=== PATIENT | male | born 2000 | race Caucasian/White ===

== ENCOUNTER → 2020-04-02 | Outpatient (CLI) | payer MEDICAID ==
[2020-04-02 12:32] LABS: Basophils # (A) 0.1 k/uL (0-0.2); Basophils % (A) 1 %; Eosinophils # (A) 0.1 k/uL (0-0.7); Eosinophils % (A) 1 %; HCT 47.1 % (39.0-53.0); HGB 15.2 gm/dL (13.0-17.5); Lymphocytes # (A) 2.7 k/uL (1.0-4.8); Lymphocytes % (A) 27 %; MCH 29.2 pg (25.0-35.0); MCHC 32.2 g/dL (31.0-37.0); MCV 90.6 fL (80.0-100.0); Monocytes # (A) 0.6 k/uL (0-1.0); Monocytes % (A) 6 %; Neutrophils # (A) 6.5 k/uL (1.3-7.7); Neutrophils % (A) 64 %; Platelet Count 328 k/uL (150-450); RDW 12.9 % (11.5-15.5); WBC 10.2 k/uL (4.0-11.0)
[2020-04-02 20:29] LABS: African American GFR (CKD) 157.5 (60.0-200.0); Albumin 4.5 g/dL (3.80-4.90); Albumin/Globulin Ratio 2.25 (1.60-3.17); Anion Gap 6.1 mmol/L (4.00-12.00); BUN/Creat Ratio 12.86 Ratio (12.00-20.00); Calcium 9.2 mg/dL (8.7-10.3); Carbon Dioxide 25.9 mmol/L (21.6-31.8); Magnesium 2.2 mg/dL (1.5-2.4); Non-African American GFR(CKD) 135.9 (60.0-200.0); Potassium 4.4 mmol/L (3.5-5.5); Total Bilirubin 0.3 mg/dL (0.3-1.2); Total Protein 6.5 g/dL (6.2-8.2)
== END | disposition home or self-care (01) ==
LOC: LABWHC1 11:47
PROVIDERS: ATTEND Internal Medicine
DX: Z00.01 Encounter for general adult medical examination with abnormal findings (principal); F41.1 Generalized anxiety disorder; K21.9 Gastro-esophageal reflux disease without esophagitis; R53.83 Other fatigue
CPT/HCPCS: 36415; 80053; 82306; 82607; 83735; 84443; 85025

== ENCOUNTER 2022-03-13 11:04 | Emergency (ER) | payer MEDICAID, OTHER ==
[2022-03-13] MEDS ORDERED: SODIUM CHLORIDE 0.9% 2,000 ML IV STA (11:10)
--- NOTE | 2022-03-13 11:11 | ED ---
General Adult HPI - General Stated complaint: Flank Pain Time Seen by Provider: 03/13/22 11:10 Source: patient, family, RN notes reviewed Mode of arrival: ambulatory Limitations: no limitations - History of Present Illness Initial comments: This is a 21-year-old male presents emergency Department chief complaint of left flank pain. Patient states the pain started last 24 hours he did have noted hematuria prior to this. Patient has no history kidney stones but states pain is excruciating, nothing makes it feel better at this time. Patient's very nausea, vomiting. Patient denies any fevers or chills no dysuria no diarrhea constipation. - Related Data Previous Rx's Medication Instructions Recorded HYDROcodone/APAP 10-325MG [[place] 1 tab PO Q6HR PRN 3 Days #12 tab 03/13/22 10-325] Ketorolac [Toradol] 10 mg PO Q8HR #15 tab 03/13/22 Ondansetron Odt [Zofran Odt] 4 mg PO Q8HR PRN #10 tab 03/13/22 Tamsulosin [Flomax] 0.4 mg PO DAILY #7 cap 03/13/22 Allergies Allergy/AdvReac Type Severity Reaction Status Date / Time No Known Allergies Allergy Verified 03/13/22 12:14 Review of Systems ROS Statement: Those systems with pertinent positive or pertinent negative responses have been documented in the HPI. ROS Other: All systems not noted in ROS Statement are negative. Past Medical History Past Medical History: No Reported History History of Any Multi-Drug Resistant Organisms: None Reported Past Surgical History: Cholecystectomy Past Psychological History: No Psychological Hx Reported Past Alcohol Use History: None Reported Past Drug Use History: None Reported General Exam General appearance: alert, in no apparent distress Head exam: Present: atraumatic, normocephalic, normal inspection Eye exam: Present: normal appearance, PERRL, EOMI. Absent: scleral icterus, conjunctival injection, periorbital swelling Respiratory exam: Present: normal lung sounds bilaterally. Absent: respiratory distress, wheezes, rales, rhonchi, stridor Cardiovascular Exam: Present: regular rate, normal rhythm, normal heart sounds. Absent: systolic murmur, diastolic murmur, rubs, gallop, clicks GI/Abdominal exam: Present: soft, normal bowel sounds. Absent: distended, tenderness (No increasing pain with palpation), guarding, rebound, rigid Back exam: Present: CVA tenderness (L). Absent: CVA tenderness (R) Neurological exam: Present: alert Skin exam: Present: warm, dry, intact, normal color. Absent: rash Course Vital Signs 03/13/22 03/13/22 11:23 12:38 Temperature 98.3 F Pulse Rate 80 80 Respiratory 20 18 Rate Blood Pressure 151/98 159/86 O2 Sat by Pulse 95 100 Oximetry Medical Decision Making - Medical Decision Making 4-year-old presented for left flank pain patient has 9 mm UPJ stone. Patient was given pain meds fluids feels improved at this time he is advised that he needs a follow-up with urology for - Lab Data Result diagrams: 03/13/22 12:06 03/13/22 12:06 Lab Results 03/13/22 03/13/22 03/13/22 Range/Units 12:06 12:06 12:47 WBC 15.2 H (3.8-10.6) k/uL RBC 5.32 (4.30-5.90) m/uL Hgb 15.6 (13.0-17.5) gm/dL Hct 47.2 (39.0-53.0) % MCV 88.8 (80.0-100.0) fL MCH 29.3 (25.0-35.0) pg MCHC 33.0 (31.0-37.0) g/dL RDW 12.7 (11.5-15.5) % Plt Count 441 (150-450) k/uL MPV 7.4 Neutrophils % 80 % Lymphocytes % 12 % Monocytes % 6 % Eosinophils % 1 % Basophils % 1 % Neutrophils # 12.1 H (1.3-7.7) k/uL Lymphocytes # 1.8 (1.0-4.8) k/uL Monocytes # 0.9 (0-1.0) k/uL Eosinophils # 0.1 (0-0.7) k/uL Basophils # 0.1 (0-0.2) k/uL Sodium 141 (137-145) mmol/L Potassium 4.1 (3.5-5.1) mmol/L Chloride 105 (98-107) mmol/L Carbon Dioxide 24 (22-30) mmol/L Anion Gap 12 mmol/L BUN 11 (9-20) mg/dL Creatinine 0.85 (0.66-1.25) mg/dL Est GFR (CKD-EPI)AfAm >90 (>60 ml/min/1.73 sqM) Est GFR (CKD-EPI)NonAf >90 (>60 ml/min/1.73 sqM) Glucose 110 H (74-99) mg/dL Calcium 9.4 (8.4-10.2) mg/dL Total Bilirubin 0.6 (0.2-1.3) mg/dL AST 29 (17-59) U/L ALT 26 (4-49) U/L Alkaline Phosphatase 101 (38-126) U/L Total Protein 7.6 (6.3-8.2) g/dL Albumin 4.8 (3.5-5.0) g/dL Amylase 152 H (30-110) U/L Lipase 110 (23-300) U/L Urine Color Light Yellow Urine Appearance Cloudy (Clear) Urine pH 7.5 (5.0-8.0) Ur Specific [place] 1.012 (1.001-1.035) Urine Protein Trace H (Negative) Urine Glucose (UA) Negative (Negative) Urine Ketones Negative (Negative) Urine Blood Trace H (Negative) Urine Nitrite Negative (Negative) Urine Bilirubin Negative (Negative) Urine Urobilinogen <2.0 (<2.0) mg/dL Ur Leukocyte Esterase Negative (Negative) Urine RBC 16 H (0-5) /hpf Urine WBC 3 (0-5) /hpf Amorphous Sediment Moderate H (None) /hpf Urine Mucus Occasional H (None) /hpf Disposition Clinical Impression: Kidney stone on left side Disposition: HOME SELF-CARE Condition: Stable Instructions (If sedation given, give patient instructions): Kidney Stones (ED) Additional Instructions: Please return to the Emergency Department if symptoms worsen or any other concerns. Is patient prescribed a controlled substance at d/c from ED?: Yes When asked, does pt state using other controlled substances?: No If prescribed controlled substance>3 days was MAPS reviewed?: Prescribed <3 Days If opioid is for acute pain is fill amount 7 days or less?: Yes If Rx opioid, was Start Talking consent form obtained?: Yes Referrals: Maria Luisa Musa III, MD [Primary Care Provider] - 1-2 days Johann Reese MD [STAFF PHYSICIAN] - 1-2 days Time of Disposition: 13:35
[2022-03-13 11:26] VITALS: PULSE 80; TEMP 98.3
[2022-03-13] MEDS ORDERED: HYDROmorphone 0.5 MG/0.5 ML SYRINGE IVP STA ×2 (11:48→12:17)
[2022-03-13] MEDS ORDERED: KETOROLAC 15 MG/ML 1 ML VIAL IVP STA ×2 (11:48→12:17)
[2022-03-13] MEDS ORDERED: ONDANSETRON 4 MG/2 ML VIAL IVP STA (11:48)
--- NOTE | 2022-03-13 12:16 | CT ---
EXAMINATION TYPE: CT abdomen pelvis wo con DATE OF EXAM: 03/13/2022 COMPARISON: X-ray dated 02/21/2014 HISTORY: left flank pain CT DLP: 1634.4 mGycm Automated exposure control for dose reduction was used. TECHNIQUE: Helical acquisition of images was performed from the lung bases through the pelvis. FINDINGS: LUNG BASES: No significant abnormality is appreciated. LIVER/GB: Previous cholecystectomy. Grossly unremarkable liver. PANCREAS: No significant abnormality is seen. SPLEEN: No significant abnormality is seen. ADRENALS: No significant abnormality is seen. KIDNEYS: 8 x 9 mm obstructing stone is seen at the left pelviureteric junction, causing dilatation of the left collecting system and left perinephric fat stranding. 2 mm nonobstructing stone is seen at the lower pole of the left kidney. Suspected left renal cyst measuring up to 2.6 cm, suboptimally ass essed by the CT scan with questionable subtle hypodensity within. Further elective ultrasound assessm ent can be considered. Unremarkable right kidney. No right-sided hydroureter or hydronephrosis. FREE AIR: No free air is visualized RETROPERITONEAL ADENOPATHY: None visualized REPRODUCTIVE ORGANS: No significant abnormality is seen URINARY BLADDER: No significant abnormality is seen. PELVIC ADENOPATHY: None visualized. OSSEOUS STRUCTURES: Mild degenerative changes at L5-S1 level. BOWEL: No significant abnormality is seen. IMPRESSION: 9 mm left pelviureteric junction obstructing stone as described above, for urology consultation. Othe r findings as described above.
[2022-03-13 12:18] LABS: Basophils # (A) 0.1 k/uL (0-0.2); Basophils % (A) 1 %; Eosinophils # (A) 0.1 k/uL (0-0.7); Eosinophils % (A) 1 %; HCT 47.2 % (39.0-53.0); HGB 15.6 gm/dL (13.0-17.5); Lymphocytes # (A) 1.8 k/uL (1.0-4.8); Lymphocytes % (A) 12 %; MCH 29.3 pg (25.0-35.0); MCV 88.8 fL (80.0-100.0); Mean Platelet Volume 7.4; Monocytes # (A) 0.9 k/uL (0-1.0); Monocytes % (A) 6 %; Neutrophils # (A) 12.1 k/uL (1.3-7.7); Neutrophils % (A) 80 %; Platelet Count 441 k/uL (150-450); RBC 5.32 m/uL (4.30-5.90); RDW 12.7 % (11.5-15.5); WBC 15.2 k/uL (3.8-10.6)
[2022-03-13 12:39] VITALS: BP 159/86; RESP 18
[2022-03-13 12:40] LABS: ALT 26 U/L (4-49); AST 29 U/L (17-59); African American GFR (CKD) >90 (>60 ml/min/1.73 sqM); Albumin 4.8 g/dL (3.5-5.0); Alkaline Phosphatase 101 U/L (38-126); Amylase 152 U/L (30-110); Anion Gap 12 mmol/L; Blood Urea Nitrogen 11 mg/dL (9-20); Calcium 9.4 mg/dL (8.4-10.2); Carbon Dioxide 24 mmol/L (22-30); Chloride 105 mmol/L (98-107); Glucose 110 mg/dL (74-99); Lipase 110 U/L (23-300); Non-African American GFR(CKD) >90 (>60 ml/min/1.73 sqM); Potassium 4.1 mmol/L (3.5-5.1); Sodium 141 mmol/L (137-145); Total Bilirubin 0.6 mg/dL (0.2-1.3); Total Protein 7.6 g/dL (6.3-8.2)
[2022-03-13 13:00] LABS: Amorphous Sediment,Urine Moderate /hpf; Appearance,Urine Cloudy (Clear); Bilirubin,Urine Negative (Negative); Blood,Urine Trace (Negative); Color,Urine Light Yellow; Glucose,Urine (UA) Negative (Negative); Ketones,Urine Negative (Negative); Leukocyte Esterase,Urine Negative (Negative); Mucus,Urine Occasional /hpf; Nitrite,Urine Negative (Negative); PH, Urine 7.5 (5.0-8.0); Protein,Urine Trace (Negative); RBC,Urine 16 /hpf (0-5); Specific Gravity,Urine 1.012 (1.001-1.035); Urobilinogen,Urine <2.0 mg/dL (<2.0); WBC,Urine 3 /hpf (0-5)
[2022-03-13] MEDS ORDERED: METOCLOPRAMIDE 5 MG/ML 2 ML VIAL IVP STA (13:51)
== END 2022-03-13 14:06 | disposition home or self-care (01) ==
LOC: EC 11:04
DX: N20.0 Calculus of kidney (principal)
CPT/HCPCS: 36415; 80053; 82150; 83690; 85025; 81001; 74176; 99284; 96374; 96375 ×3; 96376 ×2; 96361 ×2; J2765; J2405; J1885; J1170

== ENCOUNTER 2022-03-19 10:19 | Day surgery (SDC) | payer OTHER ==
[2022-03-18 08:56] VITALS: BMI 38.6
--- NOTE | 2022-03-18 20:38 | P.GSHP ---
History of Present Illness H&P Date: 03/18/22 21 yo male, several days began with severe left flank pain. He ended up in the er where they identified a 9 mm proximal ureteral stone. He came to see me. This is the patients first stone. He has had no fever. I reviewed with the patient treatment options including spontaneous passage, eswl, ureteroscopy and pcnl. He comes for a left ureteroscopy and left laser lithotripsy. He may need a stent . The risks and complications have been discussed. Past Medical History Past Medical History: No Reported History Additional Past Medical History / Comment(s): KIDNEY STONES History of Any Multi-Drug Resistant Organisms: None Reported Past Surgical History: Cholecystectomy Past Anesthesia/Blood Transfusion Reactions: No Reported Reaction Smoking Status: Current every day smoker, Vaper - Past Family History Mother Family Medical History: No Reported History Medications and Allergies Home Medications Medication Instructions Recorded Confirmed Type HYDROcodone/APAP 10-325MG [[place] 1 tab PO Q6HR PRN 3 Days #12 tab 03/13/22 0 03/18/22 Rx 10-325] Ketorolac [Toradol] 10 mg PO Q8HR #15 tab 03/13/22 03/18/22 Rx Ondansetron Odt [Zofran Odt] 4 mg PO Q8HR PRN #10 tab 03/13/22 03/18/22 Rx Tamsulosin [Flomax] 0.4 mg PO DAILY #7 cap 03/13/22 03/18/22 Rx Allergies Allergy/AdvReac Type Severity Reaction Status Date / Time No Known Allergies Allergy Verified 03/18/22 08:41 Surgical - Exam - General mild distress. well developed, well nourished - Eyes PERRL - ENT no hearing loss - Neck trachea midline - Respiratory normal expansion, normal respiratory effort - Cardiovascular Rhythm: regular - Abdomen tender left flank Abdomen: soft - Genitourinary normal penis with no external lesions, testicles present - Integumentary no growths - Neurologic normal coordination, normal sensation - Musculoskeletal normal gait, normal posture - Psychiatric oriented to time, oriented to person, oriented to place, speech is normal, memory intact Results - Imaging CT scan - abdomen: report reviewed, image reviewed CT scan - pelvis: report reviewed, image reviewed Assessment and Plan Assessment: Impression: left ureteral stone, large. Plan: cysto with left ureteroscopy, laser lithotripsy and possible stent.
[~2022-03-19 10:19] MED LIST: DEXAMETHASONE SOD PHOSPHATE 4 MG/ML 1 ML VIAL IV ONE; HYDROmorphone 0.5 MG/0.5 ML SYRINGE IVP PRN; LACTATED RINGERS 1,000 ML IV SCH; MIDAZOLAM 2 MG/2 ML VIAL IV PRN; ONDANSETRON 4 MG/2 ML VIAL IVP ONE; SCOPOLAMINE 1 MG/72 HR PATCH TRANSDERM ONE; ceFAZolin 3 GM in SODIUM CHLORIDE 0.9% 100 ML IVPB PRN
--- NOTE | 2022-03-19 11:11 | XR ---
EXAMINATION TYPE: XR KUB DATE OF EXAM: 03/19/2022 10:31 AM CLINICAL HISTORY: Left-sided kidney stones. TECHNIQUE: Two supine KUB images of the abdomen are obtained. COMPARISON: CT abdomen and pelvis March 13, 2022 FINDINGS: Stable near 9 mm calculus proximal left ureter at L2-L3 disc space level. Overall nonobstructive bowel gas pattern. Cholecystectomy clips redemonstrated. Visualized osseous st ructures are intact. IMPRESSION: As above.
[2022-03-19] MEDS ORDERED: PROPOFOL 10 MG/ML 20 ML VIAL IV ONE (12:00)
[2022-03-19] MEDS ORDERED: LIDOCAINE 2% INJ 20 MG/ML (2 ML VIAL) ONE (12:00)
[2022-03-19] MEDS ORDERED: fentaNYL (PF) 50 MCG/ML 2 ML AMP ONE (12:00)
[2022-03-19] MEDS ORDERED: SUCCINYLCHOLINE CHLORIDE 100 MG/5 ML SYR IV ONE (12:00)
[2022-03-19] MEDS ORDERED: MIDAZOLAM 2 MG/2 ML VIAL ONE (12:00)
--- NOTE | 2022-03-19 13:01 | P.OP ---
Date of Procedure: 03/19/22 Preoperative Diagnosis: Left ureteral calculus Postoperative Diagnosis: Same Procedure(s) Performed: Cystoscopy, left ureteroscopy with laser lithotripsy, 6 x 26 stent Anesthesia: LEOBARDOA Surgeon: Prasanna Sethi Estimated Blood Loss (ml): 0 Pathology: none sent Condition: stable Disposition: PACU Indications for Procedure: Patient is 21. He has an 8 mm UPJ stone with obstruction. He wishes it treated. He comes for ureteroscopy laser lithotripsy Description of Procedure: Patient brought to the operative suite. Given general anesthesia. Placed lithotomy position with sterile prep and drape. Cystoscopy 21-[place] sheath and Foroblique lens identifies a normal urethra. The prostate isn't obstructing. Ureteral orifices are normal. The bladder mucosa is unremarkable The left ureteral orifice is intubated with an 035 wire that passes eventually by the stone into the renal pelvis. Over the wires passed 10-63-Hflpjj reentry sheath. The sheath is removed. The flexible ureteroscope was passed up the stone. With the 200 probe the stone is dusted into tiny fragments and flushed out of the ureter. Some the fragments pass up and in the renal pelvis which I go up there and fragment these. Then of the procedure there is no significant fragments to basket for removal. Because of the swelling at the UPJ double-J catheter placed An 035 wires passed through the ureteroscope into the left kidney. I removed the ureteroscope and the working sheath. I backloaded the wire onto the cystoscope. The cystoscope was introduced in the bladder. Over the wires passed a 6 x 26 double-J catheter that coils in the left renal pelvis and the bladder the bladder strain the patient's awakened and returned recovery in good condition. He tolerated procedure well. He'll be discharged home upon recovery.
[2022-03-19 13:14] VITALS: TEMP 98.1
--- NOTE | 2022-03-19 13:49 | FL ---
Fluoroscopy HISTORY: Left kidney stone 41 seconds fluoroscopy time supplied to the referring clinician. 1 intraoperative C-arm images docum ent the procedure. See dictated report from urology.
[2022-03-19 14:00] VITALS: RESP 20
[2022-03-19 14:24] VITALS: BP 144/77; PULSE 88
== END 2022-03-19 14:36 | disposition home or self-care (01) ==
LOC: OR 10:19
PROVIDERS: ATTEND Urology
DX: N20.1 Calculus of ureter (principal); Z87.442 Personal history of urinary calculi; Z90.49 Acquired absence of other specified parts of digestive tract; F17.200 Nicotine dependence, unspecified, uncomplicated; Z79.899 Other long term (current) drug therapy; Z79.1 Long term (current) use of non-steroidal anti-inflammatories (NSAID)
CPT/HCPCS: 74018; 52356; C2625; C1769; J2250; J1100; J0690; J2405; J3010; J0330; J2704; J2001

== ENCOUNTER 2022-08-24 19:33 | Emergency (ER) | payer OTHER ==
[2022-08-24 19:49] VITALS: RESP 15; TEMP 98.8
--- NOTE | 2022-08-24 20:03 | ED ---
Lower Extremity Injury HPI - General Source: EMS, RN notes reviewed Mode of arrival: EMS Limitations: no limitations - History of Present Illness MD Complaint: leg injury, ankle injury <Silas Olmos - Last Filed: 08/24/22 21:35> <Joao Tate - Last Filed: 08/26/22 07:12> - General Chief Complaint: Extremity Injury, Lower Stated Complaint: left ankle injury, [facility] Time Seen by Provider: 08/24/22 19:53 - History of Present Illness Initial Comments: This is a pleasant 22-year-old male who was making a delivery. Patient turned around and ended up slipping. Patient twisted his left ankle and left leg in a strange manner. Patient went to get up and felt some movement and pain. Patient states he could not ambulate. Patient had up calling ambulance and arrives via EMS. Complaining of pain to the left ankle and left lower leg which is exacerbated by movement and attempted ambulation. Denies any other injuries. He denies distal paresthesias. No headache, no fever or chills, no changes in vision or hearing, no sore throat or difficulty with speech, no neck pain, no chest pain or shortness of breath, no abdominal pain, no nausea or vomiting, no changes in urination or bowel movements, no numbness or tingling,, no skin rashes or lesions. Past medical, surgical, social, and family history reviewed. Patient received pain medication and the EMS ambulance which improved his pain. (Silas Olmos) - Related Data Home Medications Medication Instructions Recorded Confirmed Escitalopram [Lexapro] 10 mg PO DAILY 03/19/22 03/19/22 RABEprazole SODIUM 20 mg PO DAILY 03/19/22 03/19/22 Previous Rx's Medication Instructions Recorded HYDROcodone/APAP 10-325MG [[place] 1 tab PO Q6HR PRN 3 Days #12 tab 03/13/22 10-325] Ketorolac [Toradol] 10 mg PO Q8HR #15 tab 03/13/22 Ondansetron Odt [Zofran Odt] 4 mg PO Q8HR PRN #10 tab 03/13/22 Tamsulosin [Flomax] 0.4 mg PO DAILY #7 cap 03/13/22 HYDROcodone/APAP 5-325MG [[place] 1 tab PO Q6HR PRN 3 Days #12 tab 08/24/22 [id number]] Allergies Allergy/AdvReac Type Severity Reaction Status Date / Time No Known Allergies Allergy Verified 08/25/22 13:59 Review of Systems ROS Other: All systems not noted in ROS Statement are negative. <Silas Olmos - Last Filed: 08/24/22 21:35> ROS Other: All systems not noted in ROS Statement are negative. <BebetoJoao - Last Filed: 08/26/22 07:12> ROS Statement: Those systems with pertinent positive or pertinent negative responses have been documented in the HPI. Past Medical History Past Medical History: No Reported History Additional Past Medical History / Comment(s): KIDNEY STONES History of Any Multi-Drug Resistant Organisms: None Reported Past Surgical History: Cholecystectomy Past Anesthesia/Blood Transfusion Reactions: No Reported Reaction Past Psychological History: No Psychological Hx Reported Smoking Status: Current every day smoker, Vaper - Past Family History Mother Family Medical History: No Reported History <Silas Olmos - Last Filed: 08/24/22 21:35> General Exam Limitations: no limitations General appearance: alert, in no apparent distress Head exam: Present: atraumatic, normocephalic, normal inspection Eye exam: Present: normal appearance, PERRL, EOMI. Absent: scleral icterus, conjunctival injection, periorbital swelling ENT exam: Present: normal exam, mucous membranes moist Neck exam: Present: normal inspection. Absent: tenderness, meningismus, lymphadenopathy Respiratory exam: Present: normal lung sounds bilaterally. Absent: respiratory distress, wheezes, rales, rhonchi, stridor Cardiovascular Exam: Present: regular rate, normal rhythm, normal heart sounds. Absent: systolic murmur, diastolic murmur, rubs, gallop, clicks GI/Abdominal exam: Present: soft, normal bowel sounds. Absent: distended, tenderness, guarding, rebound, rigid Extremities exam: Present: tenderness, normal capillary refill. Absent: calf tenderness Left Hip exam: Present: normal inspection, full ROM. Absent: tenderness Upper Leg exam: Present: normal inspection. Absent: tenderness, swelling Knee exam: Present: normal inspection, full ROM. Absent: tenderness, swelling, abrasion Lower Leg exam: Present: tenderness (Patient has tenderness near the proximal fibula. Also tenderness near the distal fibula.). Absent: full ROM, swelling, abrasion, laceration, ecchymosis, deformity, crepitus, dislocation Ankle exam: Present: tenderness (Lateral malleolus and distal fibula.), swelling. Absent: full ROM (Limited by pain), abrasion, laceration, ecchymosis, deformity, crepitus, dislocation, erythema, anterior draw sign Foot/Toe exam: Present: normal inspection, full ROM. Absent: tenderness, swelling, abrasion, laceration, ecchymosis, deformity, crepitus, dislocation, erythema, amputation, calcaneal tenderness, tenderness at base of 5th metatarsal Neurovascular tendon exam: Present: no vascular compromise. Absent: pulse deficit, abnormal cap refill, motor deficit, sensory deficit, pallor, abnormal 2-point discrimination Gait: observed and normal Back exam: Present: normal inspection Neurological exam: Present: alert, oriented X3, CN II-XII intact Psychiatric exam: Present: normal affect, normal mood Skin exam: Present: warm, dry, intact, normal color. Absent: rash <Silas Olmos - Last Filed: 08/24/22 21:35> Course <Joao Tate - Last Filed: 08/26/22 07:12> Vital Signs 08/24/22 08/24/22 19:45 21:43 Temperature 98.8 F Pulse Rate 77 75 Respiratory 15 15 Rate Blood Pressure 166/74 133/85 O2 Sat by Pulse 100 99 Oximetry - Reevaluation(s) Reevaluation #1: 08/26/22 07:08 Physician note: I reviewed all documentation and Results. Perform the MDM in its entirity which constitutes more than 50% percent of the visit. I did also discuss the findings with the patient and family. (Joao Tate) Procedures - Orthopedic Splinting/Casting Injury #1 Side: left Lower Extremity Injury Location: long leg Lower Extremity Immobilizer: posterior splint (OCL splint) Other Orthopedic Equipment: crutches <Silas Olmos - Last Filed: 08/24/22 21:35> - Orthopedic Splinting/Casting Injury #1 Additional Comments: Distal neurovascular status intact both pre-and post-application (Silas Olmos) Medical Decision Making <Silas Olmos - Last Filed: 08/24/22 21:35> - Medical Decision Making Patient presents with isolated orthopedic injury to the left ankle and left lower leg. Differential diagnosis, soft tissue injury, fracture, dislocation Distal neurovascular status is intact. No other injuries X-rays of the left tibia/fibula and left ankle independently interpreted by me reveal a medial malleolus fracture as well as a proximal fibular fracture. Reviewed radiology interpretation. All findings discussed with the patient. Treatment plan discussed. Patient will need to be nonweightbearing. Splint care discussed. Discussed signs and symptoms of compartment syndrome. Discussed conservative measures otherwise. Short course of [place]. Follow-up with orthopedics. On-call orthopedic physician's Dr. Campos. Patient was told to return to the ER for any signs or symptoms worsen. Told to return immediately if any other problems arise. All questions answered. Treatment plan discussed. Patient in agreement Every effort has been made to ensure accuracy of this dictation. However, due to the limitations of electronic medical records and dictation devices, errors in charting still occur. The case was discussed in detail with ED attending physician. Presentation, findings, treatment plan discussed in detail. Patient seen and assessed by the ED attending physician as well. Investigation Manager Dr. Tate (Silas Olmos) Disposition Is patient prescribed a controlled substance at d/c from ED?: No Time of Disposition: 21:35 <Silas Olmos - Last Filed: 08/24/22 21:35> <Joao Tate - Last Filed: 08/26/22 07:12> Clinical Impression: Fracture of medial malleolus, left, closed, Closed fracture of proximal end of left fibula Disposition: HOME SELF-CARE Condition: Stable Instructions (If sedation given, give patient instructions): Leg Fracture (ED), Crutch Instructions (ED), Arambula Splints (ED) Additional Instructions: Call tomorrow morning at 8 AM to schedule appointment with the orthopedic physician. Follow-up with your regular physician as directed. Return to the ER immediately if any symptoms worsen, new symptoms arise, or any other problems develop. Prescriptions: HYDROcodone/APAP 5-325MG [[place] 5-325] 1 tab PO Q6HR PRN 3 Days #12 tab PRN Reason: Pain Referrals: Maverick Campos MD [STAFF PHYSICIAN] - 08/26/22
--- NOTE | 2022-08-24 20:28 | XR ---
EXAMINATION TYPE: XR ankle complete LT DATE OF EXAM: 08/24/2022 8:15 PM INDICATION: Patient age:Male; 22 years old; Reason for study: Left ankle and left lower leg injury/pain; [facility]. COMPARISON: Left tibia/fibular radiographs 08/24/2020 TECHNIQUE: The left ankle is imaged in frontal, lateral and oblique projections. FINDINGS: Minimally displaced fracture of the medial malleolus with slight apex lateral angulation. There is wi dening of the medial joint space. Cortical step-off deformity involving the distal posterior tibia, b est appreciated on crosstable lateral views, concerning for additional fracture with intra-articular extension. Moderate soft tissue swelling of the ankle. Talar dome is normal in appearance. IMPRESSION: 1.Displaced medial malleolar fracture. 2. Cortical deformity of the distal posterior tibia concerning for secondary fracture.
--- NOTE | 2022-08-24 20:31 | XR ---
EXAMINATION TYPE: XR tibia fibula LT DATE OF EXAM: 08/24/2022 8:15 PM INDICATION: Patient age:Male; 22 years old; Reason for study: Left ankle and left lower leg injury/pain; [facility]. COMPARISON: Left ankle radiographs 08/24/2022 TECHNIQUE: The left tibia/fibula was examined in AP and lateral projections. FINDINGS: Oblique fracture of the proximal fibula, fibular head maintains normal alignment with the t ibia. Deformity of the posterior distal tibia, consistent with fracture. Partial visualization of med ial malleolus fracture. The soft tissue swelling of the ankle. No radiopaque foreign bodies. IMPRESSION: 1. Oblique fracture of the proximal fibula. 2. Distal posterior tibia and medial malleolus fracture, better characterized on ankle radiographs.
[2022-08-24] MEDS ORDERED: ONDANSETRON 4 MG/2 ML VIAL IVP STA (20:49)
[2022-08-24] MEDS ORDERED: MORPHINE SULFATE 4 MG/ML SYRINGE IV STA (20:49)
[2022-08-24] MEDS ORDERED: ACET/COD 300 MG/30 MG STARTER PACK 6 TAB BTL PO STA (20:53)
[2022-08-24 21:43] VITALS: BP 133/85; PULSE 75
== END 2022-08-24 21:51 | disposition home or self-care (01) ==
LOC: EC 19:33
DX: S82.52XA Displaced fracture of medial malleolus of left tibia, initial encounter for closed fracture (principal); S82.402A Unspecified fracture of shaft of left fibula, initial encounter for closed fracture; F17.200 Nicotine dependence, unspecified, uncomplicated; F17.290 Nicotine dependence, other tobacco product, uncomplicated; W01.0XXA Fall on same level from slipping, tripping and stumbling without subsequent striking against object, initial encounter
CPT/HCPCS: 29505; 99284; 96374; 96375; 73590; 73610; J2270; J2405

== ENCOUNTER 2022-08-25 13:06 | Emergency (ER) | payer OTHER ==
[2022-08-25 14:00] VITALS: TEMP 98
[2022-08-25] MEDS ORDERED: HYDROmorphone 0.5 MG/0.5 ML SYRINGE IM STA (16:00)
--- NOTE | 2022-08-25 16:14 | ED ---
Lower Extremity Injury HPI - General Chief Complaint: Extremity Injury, Lower Stated Complaint: [facility] - revisit lt ankle fracture Time Seen by Provider: 08/25/22 16:00 Source: patient Mode of arrival: wheelchair Limitations: no limitations - History of Present Illness Initial Comments: Patient is a 22-year-old male who presents as a revisit for ankle pain. Patient was diagnosed with a proximal fibula, distal posterior tibia, and medial malleolus fracture yesterday in the emergency department. Patient was discharged with Epping. States he has been alternating Epping and home prescription of Toradol however his pain is uncontrolled. Patient does report elevating his injury at home however has not been using ice. He denies numbness and tingling. He has an appointment with fire crew specialist on Thursday. - Related Data Home Medications Medication Instructions Recorded Confirmed Escitalopram [Lexapro] 10 mg PO DAILY 03/19/22 03/19/22 RABEprazole SODIUM 20 mg PO DAILY 03/19/22 03/19/22 Previous Rx's Medication Instructions Recorded HYDROcodone/APAP 10-325MG [Epping 1 tab PO Q6HR PRN 3 Days #12 tab 03/13/22 10-325] Ketorolac [Toradol] 10 mg PO Q8HR #15 tab 03/13/22 Ondansetron Odt [Zofran Odt] 4 mg PO Q8HR PRN #10 tab 03/13/22 Tamsulosin [Flomax] 0.4 mg PO DAILY #7 cap 03/13/22 HYDROcodone/APAP 5-325MG [Epping 1 tab PO Q6HR PRN 3 Days #12 tab 08/24/22 5-325] Allergies Allergy/AdvReac Type Severity Reaction Status Date / Time No Known Allergies Allergy Verified 08/25/22 13:59 Review of Systems ROS Statement: Those systems with pertinent positive or pertinent negative responses have been documented in the HPI. ROS Other: All systems not noted in ROS Statement are negative. Past Medical History Past Medical History: No Reported History Additional Past Medical History / Comment(s): KIDNEY STONES History of Any Multi-Drug Resistant Organisms: None Reported Past Surgical History: Cholecystectomy Past Anesthesia/Blood Transfusion Reactions: No Reported Reaction Past Psychological History: No Psychological Hx Reported Smoking Status: Current every day smoker, Vaper Past Alcohol Use History: Occasional Past Drug Use History: Marijuana - Past Family History Mother Family Medical History: No Reported History General Exam Limitations: no limitations General appearance: alert, in no apparent distress Head exam: Present: atraumatic, normocephalic, normal inspection Eye exam: Present: normal appearance, PERRL, EOMI. Absent: scleral icterus, conjunctival injection, periorbital swelling Respiratory exam: Present: normal lung sounds bilaterally. Absent: respiratory distress, wheezes, rales, rhonchi, stridor Cardiovascular Exam: Present: regular rate, normal rhythm, normal heart sounds. Absent: systolic murmur, diastolic murmur, rubs, gallop, clicks Extremities exam: Present: normal capillary refill, other (splint of lower left leg) Neurological exam: Present: alert, oriented X3, CN II-XII intact Psychiatric exam: Present: normal affect, normal mood Skin exam: Present: warm, dry, intact, normal color. Absent: rash Course Vital Signs 08/25/22 08/25/22 13:57 16:36 Temperature 98 F Pulse Rate 107 H 89 Respiratory 18 20 Rate Blood Pressure 130/83 142/87 O2 Sat by Pulse 98 99 Oximetry Medical Decision Making - Medical Decision Making This is a 22-year-old presenting with left ankle pain after fracture yesterday. There is no concern for compartment syndrome. Patient already taking Epping and Toradol. We discussed the importance of conse rvative treatment and nonweightbearing. Will give patient a dose of Dilaudid IM as he is not driving home. Patient to follow-up with fire crew specialist. Dr. Le is my attending. Disposition Clinical Impression: Closed fracture of proximal end of left fibula, Fracture of medial malleolus, left, closed, Uncontrolled pain Disposition: HOME SELF-CARE Condition: Good Instructions (If sedation given, give patient instructions): Ankle Fracture (ED) Additional Instructions: Continue Epping and and home prescription of Toradol. Be sure to rest, ice, elevate injury. Follow-up with orthopedic on Thursday as planned. Do not bear weight on injury until orthopedic clearance. Return to the emergency department if you experience new, concerning, or worsening symptoms. Is patient prescribed a controlled substance at d/c from ED?: No Referrals: Maria Luisa Musa III, MD [Primary Care Provider] - 1-2 days Time of Disposition: 16:14
[2022-08-25] MEDS ORDERED: ONDANSETRON ODT 4 MG TAB PO STA (16:21)
[2022-08-25 16:39] VITALS: BP 142/87; PULSE 89; RESP 20
== END 2022-08-25 16:39 | disposition home or self-care (01) ==
LOC: EC 13:06
DX: S82.402A Unspecified fracture of shaft of left fibula, initial encounter for closed fracture (principal); S82.52XA Displaced fracture of medial malleolus of left tibia, initial encounter for closed fracture; F17.200 Nicotine dependence, unspecified, uncomplicated; F12.90 Cannabis use, unspecified, uncomplicated; X58.XXXA Exposure to other specified factors, initial encounter
CPT/HCPCS: 99283; 96372; J1170

== ENCOUNTER 2022-09-03 06:49 | Day surgery (SDC) | payer OTHER ==
[2022-09-01 09:18] VITALS: BMI 42.9
[~2022-09-03 06:49] MED LIST changes: -DEXAMETHASONE SOD PHOSPHATE 4 MG/ML 1 ML VIAL IV ONE; -HYDROmorphone 0.5 MG/0.5 ML SYRINGE IVP PRN; -LACTATED RINGERS 1,000 ML IV SCH; -MIDAZOLAM 2 MG/2 ML VIAL IV PRN; -ONDANSETRON 4 MG/2 ML VIAL IVP ONE; -SCOPOLAMINE 1 MG/72 HR PATCH TRANSDERM ONE
--- NOTE | 2022-09-03 07:04 | P.HPOR ---
History of Present Illness H&P Date: 08/27/22 .D:Date: 08/27/22 : 09:08am .T:Title: [facility] H&P Date of :00 Age: 22 year Height: 6' Weight: 295 lbs BMI: 40.01 kg/m2 Occupation: VAS: 1 CHIEF COMPLAINT: Left leg/ankle fracute ER F/U TREATMENTS: Physical Therapy: No Injections: No Brace: Yes How long was brace worn? Since trip to [facility] ER on 08/24/22 Did it help? yes Home Spine Exercise Program: No Supplements guide: No Health Maintenance Program: No HISTORY: X-Rays: brought xrays from outside facility which were reviewed New xrays taken in office Trauma or injury: yes Work-related: yes Location: diffuse Hand dominance: right Activity Modifications: yes , PWB using crutches DOI: 08/24/22 DOS: None SUBJECTIVE: Mr. Murrell presents to the office for an evaluation of their left leg/ankle. He presents on a referral from the [facility] ER after a slip and fall at work on 08/24/22. Patient reports diffuse aching pain about the Left ankle. He was spinted at the ED after images and sent for evaluation with orthopedics. He states pain in his ankle that is controlled with meds. He stats swelling. The splint is well fitting however and non painful. Denies any other issues no numbness/tingling no f/c/sob/cp at this time. The patient's past medical history; past surgical history; family history; medicines; allergies and social history have been reviewed and are as stated elsewhere in the chart. 14 points review of systems completed and as stated in HPI, all other systems reviewed are negative. Social History: Reviewed, see appropriate section of the chart for details. P3 Social History: Smoking: current smoker P3- Vape Alcohol: currently drinks alcohol P3 Alcohol Amount: 1-2 drinks/wk Marijuana Daily Family History: Reviewed, see appropriate section of the chart for details. P2 Past Medical History: Reviewed, see appropriate section of the chart for details. P1 Current Medications: Rx: albuterol sulfate Ref: 0 Rx: HYDROcodone 10 mg-acetaminophen 325 mg tablet Ref: 0 Rx: RABEprazole Ref: 0 Rx: ToradoL Ref: 0 P1 PHYSICAL EXAM: Patient is alert and oriented 3 appears well-nourished well-hydrated is in no acute distress. They do not appear septic. Upper extremities show 5/5 strength in all major muscle groups Lower extremities with 5 out of 5 strength in all major muscle groups except for the left ankle and lower leg due to splint. He has good motion EHL and FHL and wiggles all toes. There is FROM that is painless of the b/l UE and LE in all major joints. Except for LLE secondary to fracture They are intact to light touch sensation in L2 to S1 nerve distribution as well as the C5-T1 distribution DTR 2/4 all upper and lower extremities Patient has palpable dorsalis pedis was posterior tibial pulses. Palpable Rad Ulnar pulses b/l Compartments are soft and compressible. Patient shows a negative Homans Cranial nerves II through XII are grossly intact. RADIOGRAPHS: XRay Left leg AP/lateral 2 views taken at [facility] on 08/27/22 of left leg, ankle and knee are reviewed: These demonstrate a left ankle bimalleolar ankle fracture with proximal fibular neck fracture. There is a transverse type medial malleolar fracture that is displaced and a erika B type fracture that is mimially displaced. There is lateral talar tilt and translation due to likely syndesmotic injury. with FT overlap decreased and increased medial joint space >6mm. Small posterior malleolar fracture that is non displaced. There is TT joint subluxation as well due to the frracture and instabiltiy. ASSESSMENT: It was my pleasure to have seen and examined Dat. I reviewed the patient's clinical syndrome, physical findings, and imaging studies during the appointment today. It is my impression that the patient has a diagnosis of. 1. Left ankle trimalleolar fracture with Maisonneuve injury, unstable PLAN: All options were reviewed today, we decided the best course of action would be: - Patient given a script for a left leg scooter to help with his ambulation post-operation and to avoid weightbearing with the left lower extremity. - Patient given a script for Mims 10/325mg and Toradol 10mg to help relieve his pain while waiting for surgery. - I discussed treatment options with the patient, including operative and non- operative options, and they have elected to proceed with the following surgical procedure: ORIF trimalleolar ankle fracture with syndesmosis fixation The indications, risks, benefits, and alternatives to surgery were discussed with the patient and family at length. Specifically (but not limited to) the risks of infection, stiffness, recurrence of symptoms, need for revision surgery, local numbness, neurovascular injury, and blood clots were discussed. The patient's questions were answered. The decision to proceed was made. Consent will be obtained for the procedure. Advised the patient to remian nonweightbearing with the left lower extremity until the time of surgery. Furthermore we will anticipate the patient being off of work for 6 weeks following his surgery. Orthopedic Surgery Risk Review Mr. Murrell is presenting for evaluation of left leg maisonneuve fracture. It was my pleasure to have seen and examined Mr. Murrell. In our visit today we have had a chance to go over subjective complaints, physical examination findings and treatments including the natural course history without intervention and various interventional options. The patients imaging demonstrates: XRay Left leg AP/lateral 2 views taken at [facility] [place] on 08/27/22 of left leg, ankle and knee are reviewed: These demonstrate a left ankle bimalleolar ankle fracture with proximal fibular neck fracture. There is a transverse type medial malleolar fracture that is displaced and a erika B type fracture that is mimially displaced. There is lateral talar tilt and translation due to likely syndesmotic injury. with FT overlap decreased and increased medial joint space >6mm. Small posterior malleolar fracture that is non displaced. There is TT joint subluxation as well due to the frracture and instabiltiy. . On physical exam, Mr. Murrell demonstrates Pain with motion of the LLE due to fracture that is NV intact. . I have explained to the patient that as their condition progresses it will cause further neurological deficits and eventual paralysis. Based on the patients imaging, physical exam, and the rapid progression and disabling nature of their symptoms, at this time I recommend surgery in the form or a: Syndysmosis fixation with ORIF of left bimalleolar fracture I discussed the risk and benefits of this procedure at length with Mr. Murrell. The patient agreed to considered pursuing the procedure abovementioned. Prior to surgery, she should follow up with her PCP (Cardio, ID, IM etc) for clearance. Questions were invited and answered, and the patient wishes to proceed as outlined below. Currently, I am recommendin. Open reduction and internal fixation of LEFT ankle trimalleolar fracture dislocation with syndesmosis fixation 2.Follow up with PCP for surgical clearance 3.Review of surgical risks and benefits as well as an educational packet on the proposed surgical procedure. Risks: All surgical procedures come with inherent risks, including those related to positioning, anesthesia, intraoperative findings, and postoperative complications. It is important to understand that surgery does not come with any guarantee of a successful outcome as complications and adverse events are always possible. The patient was given a handout in office today discussing the surgical procedure and risks associated with the intervention, both of which were discussed with the patient. These risks include but are not limited to the following: * Experiencing same, different or even worse symptoms in back, neck, arms, or legs compared to before surgery. Requiring further surgery or other forms of treatment presently or at some time in the future at same or other levels of the intended spine surgery. On an extreme but fortunately relatively rare basis severe complication such as blindness, stroke, heart attack, temporary and/or permanent nerve injury, paralysis, coma, or may occur, sometimes without known explanation. Surgical complications may include but are not limited to risk of infection, fluid accumulation in the surgical dissection site, including a seroma or hematoma, that requires additional surgery, wound drainage, bleeding, new numbness or weakness, vision changes/loss, spinal fluid leakage, non-healing and/or infected incision, headaches, difficulty or inability to swallow, hoarseness, hemopneumothorax, pneumothorax, impotence, retrograde ejaculation, vaginal dryness; injury to nerves, spinal cord, blood vessels, lymphatics or other vital organs (i.e., bowel injury, injury to the great vessels); heterotopic bone formation; complications related to the hardware such as screws, rods, cages including misplaced hardware, device failure, instrumentation at the wrong spine level, hardware fracture/breakage, or hardware loosening; vertebral failure of the spinal column above or below the newly placed hardware; retained surgical instrumentations or devices and the need for further surgery. * Medical risks of the planned Orthopedic surgery include but are not limited to generalized Infections to the whole body or local areas outside of the surgical site (sepsis), heart attack, bleeding, anaphylaxis, meningitis, seizure, epilepsy, hearing loss, burn oquendo, laceration of the head or other areas of the body, bruising, hypersensitivity of the skin, bladder over distension; allergic reaction; shoulder injury related to positioning; fat, blood and air clots to other areas of the body like heart, lungs, brain; failure of internal organs such as lungs, kidneys, liver and excessive bleeding. If blood transfusions are necessary, note that transfusions may cause intolerance reactions such as anaphylaxis or other complex reactions. Despite best efforts, the results of orthopedic surgery might not heal in terms of bone, soft tissues such as skin, fascia, ligaments, and joints. [facility] is an educational center that serves as a training facility for neurosurgical and orthopedic DIVE MASTER and Nursing students. Physician assistants are medically trained surgical providers who function in the outpatient, inpatient, and operating room setting under the direct supervision of the attending surgeon. [facility] has multiple operating rooms with single and overlapping rooms running daily. They currently function under the required guidelines as produced by the [facility] Finance Committee with regards to the overlapping rooms and will continue to comply with changes to this policy as they occur. The requirements include and are complied with as follows: (1) the critical portions of the overlapping rooms will not occur at the same time, (2) the attending physician will be physically present during the critical portions of the procedure and immediately available during the entire case, and (3) a back-up attending is designated should the primary attending not be immediately available. The patient has had a chance to review all the listed information, has been given print outs detailing this information, and has had all his/her questions answered to their satisfaction. It was my pleasure to have seen and examined Mr. Murrell. In our visit today we have had a chance to go over my understanding of our patient's current condition, the natural course history without intervention and various interventional options. Questions were invited and answered, and the patient wishes to proceed as outlined above. I have seen and examined the patient for 25 minutes and we have spent more than 50% of the time in repeat and detailed counseling about the patient's condition, its natural course history with out and as much as can be predicted with surgery and re-review of various surgical treatment options. In conclusion, Mr. Murrell requested we proceed with the above suggested surgery and are willing to accept risks and limitations of the suggested surgery as nature of the disease process and our best attempts at treatment for the condition. Thank you again for allowing us to be part of your patient's care. Please don't hesitate to contact me if you have any further questions. Signed and authenticated by: [employer] P:[id number]\\[id number] \\[id number].PNG \d FOLLOW- UP: 2 weeks post-op Patient Education (Informational booklet, instructions, etc) given at today's appointment: Yes .ED:Patient Education: Y Plan at next visit: X-ray Medications Reviewed: yes Attestation: In our visit today Mr. Murrell and I have had a chance to go over my understanding of the patient's current condition, the natural course history without intervention and various interventional options. Questions were invited and answered, and the patient wishes to proceed as outlined above. I will be sure to keep you updated afterMrRianna Murrell returns here for further follow-up. Thank you again for your referral. Please do not hesitate to contact me if you have any further questions. Signed and authenticated by: Benitez Frazier [facility] [address] [place] [id number] This message is confidential, intended only for the named recipient(s) and may contain information that is privileged or exempt from disclosure under applicable law. If you are not the intended recipient(s), you are notified that the dissemination, distribution or copying of this information is strictly prohibited. If you received this message in error, please notify the sender then delete this message. Patient verbalizes understanding of the information discussed. The above note was initiated by Benitez Callaway, physician recording triage assistant for Dr. Benitez Gomes. This note has been reviewed by Dr. Gomes, who has made his personal changes and impressions for this document. CC: William Musa M.D. Rx: HYDROcodone 10 mg-acetaminophen 325 mg tablet, 42, Ref: 0, take 1 tablet by oral route every 4 hours as needed for pain #Orders: Leg (Tib Fib) Lt 2v xray # SIGNED BY Benitez Gomes ([facility])08/27/2022 12:23PM # REVISED BY Benitez Gomes ([facility])09/03/2022 07:03AM Past Medical History Past Medical History: Asthma Additional Past Medical History / Comment(s): KIDNEY STONES History of Any Multi-Drug Resistant Organisms: None Reported Past Surgical History: Cholecystectomy Additional Past Surgical History / Comment(s): kidney stone removal Past Anesthesia/Blood Transfusion Reactions: No Reported Reaction Past Psychological History: Anxiety Smoking Status: Vaper Past Alcohol Use History: Occasional Additional Past Alcohol Use History / Comment(s): HAS BEEN VAPING NICOTINE SINCE AGE 18- Past Drug Use History: Marijuana Additional Drug Use History / Comment(s): USES MARIJUANA DAILY-INSTRUCTED TO REFRAIN FROM USE FOR AT LEAST 24 HOURS PRIOR TO PROCEDURE - Past Family History Mother Family Medical History: No Reported History Medications and Allergies Home Medications Medication Instructions Recorded Confirmed Type RABEprazole SODIUM 20 mg PO DAILY 03/19/22 09/01/22 History Albuterol Inhaler [Ventolin Hfa 1 - 2 puff INHALATION Q6H PRN 09/01/22 09/01/22 History Inhaler] Allergies Allergy/AdvReac Type Severity Reaction Status Date / Time No Known Allergies Allergy Verified 09/01/22 09:11 Physical Examination Osteopathic Statement: *. No significant issues noted on an osteopathic structural exam other than those noted in the History and Physical/Consult.
[2022-09-03] MEDS ORDERED: LIDOCAINE 1% (10MG/ML) FOR IV START INTRADERMA PRN (07:09)
[2022-09-03] MEDS ORDERED: LACTATED RINGERS 1,000 ML IV SCH (07:09)
[2022-09-03] MEDS ORDERED: ONDANSETRON 4 MG/2 ML VIAL IVP ONE (07:09)
[2022-09-03 08:06] LABS: Basophils # (A) 0.1 k/uL (0-0.2); Basophils % (A) 1 %; Eosinophils # (A) 0.1 k/uL (0-0.7); Eosinophils % (A) 1 %; HCT 43.6 % (39.0-53.0); HGB 15.1 gm/dL (13.0-17.5); Lymphocytes # (A) 2.7 k/uL (1.0-4.8); Lymphocytes % (A) 27 %; MCH 29.8 pg (25.0-35.0); MCHC 34.7 g/dL (31.0-37.0); MCV 85.8 fL (80.0-100.0); Mean Platelet Volume 7.2; Monocytes # (A) 0.6 k/uL (0-1.0); Monocytes % (A) 6 %; Neutrophils # (A) 6.6 k/uL (1.3-7.7); Neutrophils % (A) 64 %; Platelet Count 454 k/uL (150-450); RBC 5.08 m/uL (4.30-5.90); RDW 12.6 % (11.5-15.5); WBC 10.2 k/uL (3.8-10.6)
[2022-09-03] MEDS ORDERED: fentaNYL (PF) 50 MCG/1 ML VIAL IVP ONE (08:07)
[2022-09-03] MEDS ORDERED: MIDAZOLAM 2 MG/2 ML VIAL IVP ONE (08:07)
[2022-09-03 08:12] LABS: African American GFR (CKD) >90 (>60 ml/min/1.73 sqM); Anion Gap 11 mmol/L; Blood Urea Nitrogen 16 mg/dL (9-20); Calcium 9.4 mg/dL (8.4-10.2); Carbon Dioxide 23 mmol/L (22-30); Chloride 107 mmol/L (98-107); Glucose 103 mg/dL (74-99); Non-African American GFR(CKD) >90 (>60 ml/min/1.73 sqM); Sodium 141 mmol/L (137-145)
[2022-09-03] MEDS ORDERED: HYDROmorphone (PF) 1 MG/ML ONE (08:25)
[2022-09-03] MEDS ORDERED: ROCURONIUM 10 MG/ML (5 ML VIAL) IV ONE (08:25)
[2022-09-03] MEDS ORDERED: GLYCOPYRROLATE 0.2 MG/ML 2 ML VIAL ONE (08:25)
[2022-09-03] MEDS ORDERED: fentaNYL (PF) 50 MCG/ML 2 ML AMP ONE (08:25)
[2022-09-03] MEDS ORDERED: SUCCINYLCHOLINE CHLORIDE 200 MG/10 ML VIAL IV ONE (08:25)
[2022-09-03] MEDS ORDERED: KETOROLAC 15 MG/ML 1 ML VIAL ONE (08:25)
[2022-09-03] MEDS ORDERED: PROPOFOL 10 MG/ML 20 ML VIAL IV ONE (08:25)
[2022-09-03] MEDS ORDERED: SODIUM CHLORIDE 0.9% (PF) 10 ML VIAL ONE (08:25)
[2022-09-03] MEDS ORDERED: ROPIVACAINE 5 MG/ML 30 ML VIAL ONE (08:25)
[2022-09-03] MEDS ORDERED: MIDAZOLAM 2 MG/2 ML VIAL ONE (08:25)
[2022-09-03] MEDS ORDERED: LIDOCAINE 2% INJ 20 MG/ML (2 ML VIAL) ONE (08:25)
[2022-09-03] MEDS ORDERED: NEOSTIGMINE 1 MG/ML 10 ML VIAL ONE (08:25)
--- NOTE | 2022-09-03 08:25 | P.ANPRN ---
Procedure Note - Anesthesia - Nerve Block Performed Left Adductor Canal Time Out Performed: Yes (08:) Date of Procedure: 09/03/22 Procedure Start Time: Procedure Stop Time: : Location of Patient: PreOp Indication: Acute Post-Operative Pain, Requested by Surgeon (Dr Gomes) Sedation Type: Sedate with meaningful contact maintained Preparation: Sterile Prep Position: Supine Catheter: None Needle Types: Pajunk Needle Gauge: 21 Ultrasound used to visualize needle placement: Yes Ultrasound used to observe medication spread: Yes Injectate: 0.5% Ropivacaine (see comment for volume) (15cc +5cc PF Normal saline) Blood Aspirated: No Pain Paresthesia on Injection Noted: No Resistance on Injection: Normal Image Stored and Saved: Yes Events: Uneventful and Well Tolerated
[2022-09-03 08:27] LABS: Potassium 4.4 mmol/L (3.5-5.1)
--- NOTE | 2022-09-03 08:27 | P.ANPRN ---
Procedure Note - Anesthesia - Nerve Block Performed Left Popliteal Time Out Performed: Yes Date of Procedure: 09/03/22 Procedure Start Time: 08:12 Procedure Stop Time: 08:16 Location of Patient: PreOp Indication: Acute Post-Operative Pain, Requested by Surgeon (Dr Gomes) Sedation Type: Sedate with meaningful contact maintained Preparation: Sterile Prep Position: Right Lateral Catheter: None Needle Types: Pajunk Needle Gauge: 21 Ultrasound used to visualize needle placement: Yes Ultrasound used to observe medication spread: Yes Injectate: 0.5% Ropivacaine (see comment for volume) (15cc +5cc PF Normal saline) Blood Aspirated: No Pain Paresthesia on Injection Noted: No Resistance on Injection: Normal Image Stored and Saved: Yes Events: Uneventful and Well Tolerated
[2022-09-03] MEDS ORDERED: ceFAZolin 1,000 MG in SODIUM CHLORIDE 0.9% 1,000 ML IRRIGATION ONE (09:03)
--- NOTE | 2022-09-03 10:18 | FL ---
Fluoroscopy History: ORIF LT ANKLE DR. ALEXANDRA, ORIF LEFT ANKLE. FL TIME 2.08 MINS
[2022-09-03] MEDS ORDERED: LACTATED RINGERS 1,000 ML IV ONE (10:21)
[2022-09-03 10:28] VITALS: TEMP 97.7
[2022-09-03] MEDS ORDERED: HYDROmorphone 0.5 MG/0.5 ML SYRINGE IVP PRN ×2 (10:29)
[2022-09-03] MEDS ORDERED: SENNOSIDES-DOCUSATE SODIUM 1 EACH TAB PO PRN (10:29)
[2022-09-03] MEDS ORDERED: HYDROcodone/APAP 5-325MG 1 EACH TAB PO PRN (10:29)
[2022-09-03] MEDS ORDERED: HYDROcodone/APAP 10-325MG 1 EACH TAB PO PRN (10:40)
[2022-09-03] MEDS: HYDROmorphone 0.5 MG/0.5 ML SYRINGE IVP PRN ×2 (11:20→11:25)
[2022-09-03] MEDS ORDERED: HYDROcodone/APAP 10-325MG 1 EACH TAB PO ONE (12:22)
[2022-09-03 13:23] VITALS: RESP 16
[2022-09-03] MEDS ORDERED: LABETALOL SYRINGE 5 MG/ML IVP ONE (13:34)
[2022-09-03 14:13] VITALS: BP 137/85; PULSE 73
--- NOTE | 2022-09-04 08:23 | P.OP ---
Date of Procedure: 09/03/22 Preoperative Diagnosis: 1. Left bimalleolar ankle fracture dislocation 2. Maisonuuve injury left ankle 3. s/p fall at work Postoperative Diagnosis: 1. Left bimalleolar ankle fracture dislocation 2. Maisonuuve injury left ankle 3. s/p fall at work Procedure(s) Performed: 1. ORIF Left avery ankle fracture (39944) 2. Short leg splint application LLE (33230) Implants: -Arthrex 4.0 cannulated screws -Arthrex tightrope x2 Anesthesia: MAC, regional Surgeon: Benitez Gomes Service Shop Foreman #1: Eugenio Owens (Was present and assisted in all aspects of the case from positioniong to splint placement) Estimated Blood Loss (ml): 20 IV fluids (ml): 500 Urine output (ml): 0 Pathology: none sent Condition: stable Disposition: PACU Indications for Procedure: Mr. Murrell is presenting for evaluation of left leg maisonneuve fracture. It was my pleasure to have seen and examined Mr. Murrell. In our visit today we have had a chance to go over subjective complaints, physic al examination findings and treatments including the natural course history without intervention and various interventional options. The patients imaging demonstrates: XRay Left leg AP/lateral 2 views taken at [facility] on 08/27/22 of left leg, ankle and knee are reviewed: These demonstrate a left ankle bimalleolar ankle fracture with proximal fibular neck fracture. There is a transverse type medial malleolar fracture that is displaced and a erika B type fracture that is mimially displaced. There is lateral talar tilt and translation due to likely syndesmotic injury. with FT overlap decreased and increased medial joint space >6mm. Small posterior malleolar fracture that is non displaced. There is TT joint subluxation as well due to the frracture and instabiltiy. . On physical exam, Mr. Murrell demonstrates Pain with motion of the LLE due to fracture that is NV intact. . I have explained to the patient that as their condition progresses it will cause further neurological deficits and eventual paralysis. Based on the patients imaging, physical exam, and the rapid progression and disabling nature of their symptoms, at this time I recommend surgery in the form or a: Syndysmosis fixation with ORIF of left bimalleolar fracture I discussed the risk and benefits of this procedure at length with Mr. Murrell. The patient agreed to considered pursuing the procedure abovementioned. Prior to surgery, she should follow up with her PCP (Cardio, ID, IM etc) for clearance. Questions were invited and answered, and the patient wishes to proceed as outlined below. Currently, I am recommendin. Open reduction and internal fixation of LEFT ankle trimalleolar fracture dislocation with syndesmosis fixation Description of Procedure: The patient was seen and examined in the preoperative area. All preoperative protocols were followed. Informed consent was obtained risks and benefits of the procedure were discussed at length. Risks including bleeding infection damage to the surrounding tissue and risk of reoperation were discussed with the patient. Risk of anesthesia up to and including was a discussed with the patient. These are outlined in the risk reviewed. They were willing to accept these risks and all of the risks of surgery. The patient was given a weight- based dose of antibiotics in the form of 2 g Ancef. The patient was seen and evaluated by the anesthesia team who deemed them fit for surgery. The site was marked, the patient was willing to proceed with the procedure. The patient was transferred to the operative suite by the Department of anesthesia. There were then drifted off to sleep by the department of anesthesia and regional with LMA anesthesia was used. Once adequate anesthesia had been obtained the patient was carefully transferred to the operative bed. All bony prominences were padded accordingly. SCDs were placed on the nonoperative lower extremities. Arms were well padded. left leg was exposed and placement of a bone foam wrap tourniquet was placed on the patient's left upper thigh. A bump was placed. Preoperative briefing was done with the operative team and everyone was ready for the procedure to start. The patients left lower extremity was then prepped and draped in the normal sterile fashion. Timeout was then performed and all parties in agreement with the procedure to be performed. starting on the medial side and incision was made over the medial malleolus and blunt dissection taken down until the periosteum was identified and was split and opened and the bone was cleaned using a knife. We cleaned the fracture site using curet and irrigation. The fracture was then reduced a small drill hole was placed in the tibia and a reduction clamp was placed over the tip of the medial malleolus and held into position. 2 wires were then placed in the AP and lateral for reduction followed by 2 partially-threaded cannulated screws. These were placed over the wires. This held the medial malleolus into a reduced position. the medial malleolus was stable on x-ray then and stable through range of motion of the ankle. We then performed a external rotation stress test and it showed a large gap in the tib-fib overlap. There was no fibular fracture to fix however and so it was chosen to do an Arthrex tight rope system for syndesmotic fixation. Skin incision was made over the lateral aspect of the patient's ankle just above the joint line and functional scar. Dissection taken down to the fibula which was identified and cleaned with a wood handled elevator. A buttress plate was then selected and pinned into position and confirmed being good position on AP and lateral. We then drilled syndesmotic fixation portals 30 anterior and parallel with the joint line. We then placed our first tight rope system ensure that it was secured bone and tightened thoroughly. We then remove the pin and perform this on the second buttress plate hole. An awl to tight ropes were placed across the syndesmosis the syndes mosis was reduced well. We then checked the ankle through range of motion performed a cotton test and an extra rotation test. This showed stability of the syndesmosis. Thoroughly irrigated the wounds with normal sterile saline. The wounds were then closed with 0 Vicryl in the periosteum and deep subcu 2-0 Vicryl in the superficial subcu and a running 2-0 nylon in the skin. All wound edges appr oximated very well. The wound was then cleaned and dressed sterilely with Adaptic 4 x 4's ABDs. The patient was then placed in a well-padded well molded short-leg AO splint of the left lower extremity. This is then overwrapped with an [place]ark wrap. The patient was then transferred back to their hospital bed. There were awakened by department of anesthesia having tolerated the procedure very well with no complications. The patient was then transported to the postoperative care unit in stable condition.
== END 2022-09-03 14:30 | disposition home or self-care (01) ==
LOC: OR 06:49
PROVIDERS: ATTEND Orthopaedic Surgery
DX: S82.852A Displaced trimalleolar fracture of left lower leg, initial encounter for closed fracture (principal); S82.862A Displaced Maisonneuve's fracture of left leg, initial encounter for closed fracture; W01.0XXA Fall on same level from slipping, tripping and stumbling without subsequent striking against object, initial encounter; Y93.89 Activity, other specified; J45.909 Unspecified asthma, uncomplicated; G89.18 Other acute postprocedural pain; F17.290 Nicotine dependence, other tobacco product, uncomplicated; F10.20 Alcohol dependence, uncomplicated; F12.20 Cannabis dependence, uncomplicated; Z79.51 Long term (current) use of inhaled steroids; Z79.1 Long term (current) use of non-steroidal anti-inflammatories (NSAID); Z79.899 Other long term (current) drug therapy
CPT/HCPCS: 80048; 85025; 73600; 64447; 64999; 76942; 27822; 27829; J2250; J0690 ×2; J2405; J1170; J3010; 64445

== ENCOUNTER 2023-01-10 21:47 | Emergency (ER) | payer OTHER ==
[2023-01-10 21:52] VITALS: BP 156/93; RESP 22; TEMP 98.2
--- NOTE | 2023-01-10 22:05 | ED ---
Chest Pain HPI - General Chief Complaint: Chest Pain Stated Complaint: Chest Pain Time Seen by Provider: 01/10/23 21:54 Source: patient Mode of arrival: wheelchair Limitations: no limitations - History of Present Illness Initial Comments: This patient is a 22-year-old man who presents evaluation of some sternal chest pain that has been going on intermittently since the morning. The patient has not noted provoking or relieving factors. It is in the upper substernal portion of the chest. He describes it as a squeezing pain that lasts up to a minute. No associated symptoms. No family history. Patient states he quit they bring last week. MD Complaint: chest pain -: hour(s) Onset: during rest Pain Location: substernal Pain Radiation: none Severity: mild Quality: tightness Consistency: intermittent Improves With: nothing Worsens With: nothing Treatments Prior to Arrival: none - Related Data Home Medications Medication Instructions Recorded Confirmed RABEprazole SODIUM 20 mg PO DAILY 03/19/22 09/03/22 Albuterol Inhaler [Ventolin Hfa 1 - 2 puff INHALATION Q6H PRN 09/01/22 09/01/22 Inhaler] Previous Rx's Medication Instructions Recorded Aspirin 81 mg PO DAILY #14 tab 09/03/22 HYDROcodone/APAP 10-325MG [[place] 1 tab PO Q4-6H PRN #24 tab 09/03/22 10-325] Allergies Allergy/AdvReac Type Severity Reaction Status Date / Time No Known Allergies Allergy Verified 01/10/23 21:49 Review of Systems ROS Statement: Those systems with pertinent positive or pertinent negative responses have been documented in the HPI. ROS Other: All systems not noted in ROS Statement are negative. Constitutional: Denies: fever, chills Respiratory: Denies: cough, dyspnea Cardiovascular: Reports: chest pain. Denies: palpitations, orthopnea, edema, syncope Gastrointestinal: Denies: abdominal pain, nausea, vomiting Genitourinary: Denies: dysuria, hematuria Musculoskeletal: Denies: back pain Skin: Denies: rash Neurological: Denies: headache, weakness, numbness EKG Findings - EKG Results: EKG: interpreted by MARCO MAL, sinus rhythm (Sinus arrhythmia, rate 85 bpm), normal axis, normal QRS, normal ST/T Past Medical History Past Medical History: Asthma Additional Past Medical History / Comment(s): KIDNEY STONES History of Any Multi-Drug Resistant Organisms: None Reported Past Surgical History: Cholecystectomy, Orthopedic Surgery Additional Past Surgical History / Comment(s): kidney stone removal, left ankle Past Anesthesia/Blood Transfusion Reactions: No Reported Reaction Past Psychological History: Anxiety Smoking Status: Former smoker Past Alcohol Use History: Rare Past Drug Use History: Marijuana - Past Family History Mother Family Medical History: No Reported History General Exam Limitations: no limitations General appearance: alert, in no apparent distress Head exam: Present: atraumatic, normocephalic Eye exam: Present: normal appearance. Absent: scleral icterus, conjunctival injection Neck exam: Present: normal inspection Respiratory exam: Present: normal lung sounds bilaterally. Absent: respiratory distress, wheezes, rales, rhonchi, stridor Cardiovascular Exam: Present: regular rate, normal rhythm, normal heart sounds. Absent: systolic murmur, diastolic murmur, rubs, gallop GI/Abdominal exam: Present: soft. Absent: distended, tenderness, guarding, rebound, rigid, mass Extremities exam: Present: normal inspection, normal capillary refill. Absent: pedal edema, calf tenderness Back exam: Present: normal inspection. Absent: CVA tenderness (R), CVA tenderness (L) Neurological exam: Present: alert Skin exam: Present: warm, dry, intact, normal color. Absent: rash Course Vital Signs 01/10/23 01/10/23 21:49 22:25 Temperature 98.2 F Pulse Rate 78 Pulse Rate [ 90 Apical] Respiratory 22 Rate Blood Pressure 156/93 O2 Sat by Pulse 97 Oximetry Chest Pain MDM - MDM This patient is 22-year-old man presenting with chest pain. Symptoms not suggestive of acute coronary syndrome. The patient did have chest x-ray which I interpreted as not showing acute infiltrate, congestive heart failure, or pneumothorax rate no bony injury area Was pt. sent in by a medical professional or institution (, PA, SQUIRREL WORKER, urgent care, hospital, or custodial...) When possible be specific @ -[No] Did you speak to anyone other than the patient for history (EMS, parent, family, police, friend...)? What history was obtained from this source @ -[No] Did you review nursing and triage notes (agree or disagree)? Why? @ -[I reviewed and agree with nursing and triage notes] Were old charts reviewed (outside hosp., previous admission, EMS record, old EKG, old radiological studies, urgent care reports/EKG's, custodial records)? Report findings @ -[No old charts were reviewed] Differential Diagnosis (chest pain, altered mental status, abdominal pain women, abdominal pain men, vaginal bleeding, weakness, fever, dyspnea, syncope, headache, dizziness, GI bleed, back pain, seizure, CVA, palpatations, mental health, musculoskeletal)? @ -[Differential Chest Pain: Stable Angina, Unstable Angina, STEMI, NSTEMI Aortic Dissection, Pneumothorax, Musculoskeletal, Esophageal Spasm GERD, Cholecystitis, Pancreatitis, Zoster, this is not meant to be an all-inclusive list. EKG interpreted by me (3pts min.). @ -[As above] X-rays interpreted by me (1pt min.). @ -[As above CT interpreted by me (1pt min.). @ -[None done] U/S interpreted by me (1pt. min.). @ -[None done] What testing was considered but not performed or refused? (CT, X-rays, U/S, labs)? Why? @ -[None] What meds were considered but not given or refused? Why? @ -[None] Did you discuss the management of the patient with other professionals (professionals i.e. , PA, SQUIRREL WORKER, lab, RT, psych nurse, social media specialist, buffer automatic, teacher, state patrol officer, pillowcase cleaner)? Give summary @ -[No] Was smoking cessation discussed for >3mins.? @ -[No] Was critical care preformed (if so, how long)? @ -[No] Were there social determinants of health that impacted care today? How? (Homelessness, low income, unemployed, alcoholism, drug addiction, transportation, low edu. Level, literacy, decrease access to med. care, longterm, rehab)? @ -[No] Was there de-escalation of care discussed even if they declined (Discuss DNR or withdrawal of care, Hospice)? DNR status @ -[No] What co-morbidities impacted this encounter? (DM, HTN, Smoking, COPD, CAD, Cancer, CVA, ARF, Chemo, Hep., AIDS, mental health diagnosis, sleep apnea, morbid obesity)? @ -[None] Was patient admitted / discharged? Hospital course, mention meds given and route, prescriptions, significant lab abnormalities, going to OR and other pertinent info. @ -[Discharged Undiagnosed new problem with uncertain prognosis? @ -[No] Drug Therapy requiring intensive monitoring for toxicity (Heparin, Nitro, Insulin, Cardizem)? @ -[No] Were any procedures done? @ -[No] Diagnosis/symptom? @ -[Acute chest pain, uncomplicated Acute, or Chronic, or Acute on Chronic? @ -[default] Uncomplicated (without systemic symptoms) or Complicated (systemic symptoms)? @ -[default] Side effects of treatment? @ -[No] Exacerbation, Progression, or Severe Exacerbation? @ -[No] Poses a threat to life or bodily function? How? (Chest pain, [place], [place], pneumonia, PE, COPD, DKA, ARF, appy, cholecystitis, CVA, Diverticulitis, Homicidal, Suicidal, threat to staff... and all critical care pts) @ -[No] Disposition Clinical Impression: Chest pain Disposition: HOME SELF-CARE Condition: Good Instructions (If sedation given, give patient instructions): Chest Pain (ED) Is patient prescribed a controlled substance at d/c from ED?: No Referrals: Lan Rogers MD [Primary Care Provider] - 1-2 days
[2023-01-10 22:27] VITALS: PULSE 90
--- NOTE | 2023-01-10 23:21 | XR ---
EXAM: XR Chest, 2 Views CLINICAL HISTORY: ITS.REASON XR Reason: chest TECHNIQUE: Frontal and lateral views of the chest. COMPARISON: No previous studies. FINDINGS: Lungs: Unremarkable. No consolidative change. Pleural space: Unremarkable. No pneumothorax. No pleural effusions. Heart: Unremarkable. No cardiomegaly. Mediastinum: Cardiomediastinal silhouette is unremarkable. Bones/joints: Gentle levoscoliosis of the thoracic spine. Soft tissues: Soft tissues are unremarkable. Upper abdomen: Minimal eventration of the right hemidiaphragm. IMPRESSION: No active disease.
== END 2023-01-11 00:06 | disposition home or self-care (01) ==
LOC: EC 21:47
DX: R07.89 Other chest pain (principal); J45.909 Unspecified asthma, uncomplicated; Z87.891 Personal history of nicotine dependence; F12.90 Cannabis use, unspecified, uncomplicated; Z86.59 Personal history of other mental and behavioral disorders; Z79.899 Other long term (current) drug therapy
CPT/HCPCS: 71046; 93005; 99285

== ENCOUNTER → 2023-01-28 | Outpatient (CLI) | payer OTHER ==
--- NOTE | 2023-02-20 22:40 | CE ---
21 DAY EVENT MONITOR REPORT A 21-day event monitor. FINDINGS: The patient was monitored for 21 days. The baseline rhythm appeared to be sinus mechanism. The patient did have multiple episodes of sinus tachycardia. No evidence of atrial fibrillation or atrial flutter. No evidence of any advanced AV block. No evidence of sinus pause or sinus arrest. CONCLUSION: 1. Sinus rhythm as a baseline mechanism. 2. Multiple episodes of sinus tachycardia. MMODL / IJN: [id number] / [facility]ITALJaciel
== END | disposition home or self-care (01) ==
LOC: RADECHMAIN 07:24
PROVIDERS: ATTEND Family Medicine
DX: R00.0 Tachycardia, unspecified (principal); R07.9 Chest pain, unspecified; R00.2 Palpitations
CPT/HCPCS: 93270